=== PATIENT | female | born 1995 | race Caucasian/White ===

== ENCOUNTER 2016-10-30 09:29 | Observation (INO) ==
[2016-10-30] MEDS ORDERED: Ringers Solution, Lactated 1,000 ML IVC ONE ×2 (09:55→11:39)
[2016-10-30 10:14] LABS: Bilirubin,Urine Negative (Negative); Blood,Urine Negative (Negative); Clarity,Urine Cloudy (Clear); Color,Urine Dark Yellow (Yellow); Glucose,Urine (UA) Normal (Normal); Ketones,Urine 40 mg/dL (Negative); Leukocyte Esterase,Urine Negative (Negative); Nitrite,Urine Negative (Negative); Protein,Urine Trace mg/dL (Neg-Trace); Specific Gravity,Urine > 1.030 (1.010-1.025); Urobilinogen,Urine Normal (Normal)
[2016-10-30] MEDS ORDERED: *HR* Promethazine 25 MG/ML VIAL IVP ONE (10:16)
[2016-10-30 10:18] LABS: Hyaline Casts,Urine None Seen per lpf (None-Few); RBC,Urine 0-3 per hpf (0-3); Squamous Epithelial Cell,Urine Many per lpf (None-Few)
--- NOTE | 2016-10-30 10:22 | OB/GYN Progress Note ---
Date of Encounter: 10/30/16 Time of Encounter: 10:17 - Assessment and Plan (1) Gastritis Current Visit: Yes Status: Acute -N/V/D that started last night. She feels like it is resolving -No previous history of hyperemisis gravidarum -Flu contact, no flu shot. Plan -bolus lactated ringers -phenergen -likely discharge home with anti nausea meds if resolution of symptoms. Qualifiers: Gastritis type: unspecified gastritis Chronicity: acute Gastritis bleeding: without bleeding Qualified Code(s): K29.00 - Acute gastritis without bleeding (2) Twin Current Visit: Yes Status: Acute Patient receives care elsewhere and documentation of ultrasounds are unavailable at this time. FHT's auscultated by RN x 2. Qualifiers: Multiple gestation type: unspecified (3) 22 weeks gestation of Current Visit: Yes Status: Chronic Subjective - Subjective Principal diagnosis: Gastritis Interval history: 21F, , 22w 2d, with twins, presents with 1 day of nausea, vomiting, diarrhea. Nausea began last night around 11pm, patient then started having vomiting then diarrhea. Vomited 10 times over the last 10 hours. Diarrhea is "like water" and normal color. She has tried to drink Gatorade, and threw it up. She admits to feeling hot. Denies abdominal pain, vaginal discharge, blood in her stool or vomit. Admits to being around a friend who is sick with the flu. She has not gotten her flu shot. Patient of Dr. Rosas. She feels like the babies are fine. Accompanied by father and mother in the room. Antepartum ROS: movement normal, no vaginal bleeding Objective - Exam FHR: auscultation normal Auscultation: bilateral: normal Abdomen: Present: normal appearance, soft, gravid. Absent: tenderness
[2016-10-30 10:59] LABS: Basophils % 0.1 %; Hematocrit 36.8 % (35.3-44.9); Hemoglobin 13.1 g/dL (11.5-15.4); Immature Granulocytes % 0.2 % (0-4); Lymphocytes # 0.5 K/mcL (0.6-4.6); Lymphocytes % 4.4 %; Mean Corpuscular HGB Conc 35.6 g/dL (31.6-35.5); Mean Corpuscular Hemoglobin 33.2 pg (28.0-33.3); Mean Corpuscular Volume 93.4 fL (83.0-100.0); Monocytes # 0.7 K/mcL (0.0-1.3); Monocytes % 6.2 %; Neutrophils # 10.4 K/mcL (1.6-8.9); Platelet Count 166 K/mcL (140-400); Red Blood Count 3.94 M/mcL (3.82-4.97); Segmented Neutrophils % 89.1 %
[2016-10-30 11:24] LABS: Bacteria,Urine Few per hpf (None-Few)
[2016-10-30] MEDS ORDERED: Ringers Solution, Lactated 1,000 ML IVC SCH (13:45)
[2016-10-30] MEDS ORDERED: Ondansetron 4 MG/2 ML VIAL IVP PRN (13:47)
--- NOTE | 2016-10-30 14:04 | OB/GYN History & Physical ---
Date of Encounter: 10/30/16 Time of Encounter: 14:00 Assessment and Plan (1) Dehydration during Current visit: Yes Status: Acute admit for IV hydration and antiemetic treatment clear liquid diet advance diet as tolerated (2) Gastritis Current visit: Yes Status: Acute Qualifiers: Gastritis type: unspecified gastritis Chronicity: acute Gastritis bleeding: without bleeding Qualified Code(s): K29.00 - Acute gastritis without bleeding (3) Twin Current visit: Yes Status: Acute FHR daily Qualifiers: Multiple gestation type: dichorionic and diamniotic Trimester: second trimester Qualified Code(s): O30.042 - Twin , dichorionic/diamniotic , second trimester (4) 22 weeks gestation of Current visit: Yes Status: Chronic admit for observation History of Present Illness Chief complaint: 22w2d Nausea and Vomiting HPI: Ms. Jules is a 21 year old female at 22w2d presents to labor and delivery with complaints of nausea, vomiting and diarrhea for 24 hours. Patient reports + FM denies LOF or VB. Patient sees Dr. Rosas for care. Patient denies any other complications with . Patient was given IV hydration and antiemetics however she is unable to keep food down and became diaphoretic and very pale in color. Patient to be admitted to for Hydration and medical management. Past Med Surg Social Fam HX - Past Medical History Source: patient Medical history: no medical history Psychiatric history: no psych history - Past Surgical History Surgical History: other - Social History Smoking Status: Never smoker Alcohol use: none Drug use: none Occupational status: employed Current living situation: Home - Independent Activity Level: Independent ambulation Recent Out of Country Travel Within the Last 8 Weeks: No Exposure or Possible Exposure to Illness During Travel: No - Family History Father Hx Family Cardiac Disorders: Yes (hypertension) Obstetrical History - Pregnancies : 1 Para: 0 Term: 0 : 0 Ab's: 0 Livin Medications and Allergies Vitamins 1 tab PO DAILY 10/30/16 [History] Promethazine [Phenergan] 12.5 mg PO Q6HR PRN #15 tablet 10/30/16 [Rx] Allergies No Known Allergies Allergy (Verified 10/30/16 10:02) Review of System OB - Constitutional Constitutional ROS IM: weakness, no chills, no fever(s), no headache(s) - Cardiovascular Cardiovascular: lightheadedness, no chest pain, no dyspnea, no edema, no palpitations, no syncope - Respiratory Respiratory: no cough, no dyspnea - Gastrointestinal Gastrointestinal: diarrhea, nausea, vomiting, no constipation, no dysphagia - Genitourinary Genitourinary: no abnormal vaginal bleeding, no dysuria, no flank pain, no hot flashes, no urinary frequency, no urinary urgency, no vaginal discharge, no vaginal odor, no vaginal pruritis Exam - Constitutional Constitutional: well developed, average body habitus, diaphoretic - HEENT HEENT: Pallor, Normocephaly, Mucus Membranes Moist - Neck Neck exam: full ROM, supple - Lungs Respiratory exam: CTAB - Cardiovascular Cardiovascular exam: RRR, +S1, +S2 - Abdomen Abdomen: Present: bowel sounds normal, gravid, non tender - Extremities Extremities exam: full ROM, normal capillary refill, normal inspection Deep Tendon Reflex Grade: 2+ Normal - Uterus Uterus exam: Present: normal size, normal contour (FHR baby A 152 FHR baby B150) Results Result Diagrams: 10/30/16 10:10 Abnormal lab results WBC 11.7 K/mcL (4.3-11.1) H 10/30/16 10:10 MCHC 35.6 g/dL (31.6-35.5) H 10/30/16 10:10 MPV 9.0 fL (9.4-12.4) L 10/30/16 10:10 Neutrophils # 10.4 K/mcL (1.6-8.9) H 10/30/16 10:10 Lymphocytes # 0.5 K/mcL (0.6-4.6) L 10/30/16 10:10 Urine Clarity Cloudy (Clear) A 10/30/16 09:55 Ur Specific Ault > 1.030 (1.010-1.025) H 10/30/16 09:55 Urine Ketones 40 mg/dL (Negative) H 10/30/16 09:55 Urine Microscopic WBC 5-15 per hpf (0-3) H 10/30/16 09:55 Ur Squamous Epith Cells Many per lpf (None-Few) H 10/30/16 09:55 Ur Culture Indicated? YES (NO) A 10/30/16 09:55 All other labs normal. - VTE Reasons for not Prescribing Prophylaxis: Treatment not Indicated - Low risk for VTE
[2016-10-30] MEDS ORDERED: Promethazine 50 MG in Ringers Solution, Lactated 1,000 ML IV SCH (15:30)
[2016-10-30] MEDS ORDERED: Acetaminophen 325 MG TABLET PO PRN (16:44)
[2016-10-30 21:11] VITALS: BP 107/56
[2016-10-30] MEDS ORDERED: Pyridoxine (B-6) 50 MG in Ringers Solution, Lactated 1,000 ML IVPB ONE (23:30)
== END 2016-10-30 20:30 | disposition home or self-care (01) ==
LOC: 1NENULAB → 1NENUOBS 16:04
PROVIDERS: ADMIT Obstetrics & Gynecology; ATTEND Obstetrics & Gynecology